=== PATIENT | male | born 1980 | race Hispanic/Latino ===

== ENCOUNTER 2019-05-25 21:43 | Emergency (ER) | payer SELFPAY ==
[2019-05-25] MEDS ORDERED: levETIRAcetam 500 MG TAB PO SCH (22:30)
== END 2019-05-25 23:14 | disposition home or self-care (01) ==
LOC: ERS 21:43
DX: G40.909 Epilepsy, unspecified, not intractable, without status epilepticus (principal); E78.5 Hyperlipidemia, unspecified; I10 Essential (primary) hypertension; Z79.899 Other long term (current) drug therapy
CPT/HCPCS: 93005; 94760